=== PATIENT | female | born 1980 | race African-American/Black ===

== ENCOUNTER 2016-06-10 10:54 | Emergency (ER) | payer OTHER ==
[~2016-06-10] VITALS: Ht 157.5 cm; Wt 113.2 kg
[~2016-06-10 10:54] MED LIST: BACT800T5 PO; FLAG500T PO
[2016-06-10 11:00] VITALS: BP 132/76; PULSE 81; RESP 18; TEMP 98; O2SAT 99
[2016-06-10] MEDS ORDERED: BACT800T5 PO (12:10)
--- NOTE | 2016-06-10 12:10 | PD ---
HPI Chief Complaint: Psychiatric Orderly Problem/Complaint Time Seen by Provider: 11:42 Travel History International Travel<30 days: No Contact w/Intl Traveler<30days: No Traveled to known affect area: No History of Present Illness HPI The patient is a 35-year-old Michelle female who presents emergency department for left groin pain. The patient states she's had a lump in the left groin for last 3-4 days which is tender to palpation, however, she denies any drainage. The patient states it is external to the labia. She denies any vaginal discharge or burning. She also notes occasional pain with defecation, states she has some pain with the movement of large stools, occasionally has bright red blood on her tissue paper. She denies any constipation. She denies any nausea, vomiting, or abdominal pain. She denies any associated fever, chills, sweats, or history of diabetes. PFSH Past Medical History Medical History: Denies Significant Hx Hx Anticoagulant Therapy: No Cardiovascular Problems: No Chemotherapy: No Cerebrovascular Accident: No Diabetes: No Diminished Hearing: No Respiratory: No Immunizations Current: Yes Tetanus Vaccination: < 5 Years Influenza Vaccination: No ?: Not LMP: 2 WEEKS Past Surgical History Section: Yes (X2) Hysterectomy: No Social History Alcohol Use: No Tobacco Use: No Substance Use: No Allergies-Medications (Allergen,Severity, Reaction): Coded Allergies: No Known Allergies (Unverified , 06/10/16) Reported Meds & Prescriptions Reported Meds & Active Scripts Active No Active Prescriptions or Reported Medications Review of Systems General / Constitutional: No: Fever Gastrointestinal: Positive: Other (rectal pain), No: Nausea, Vomiting, Diarrhea, Abdominal Pain Genitourinary: Positive: Other (as noted in history present illness), No: Dysuria Skin: Positive Other (as noted in the history of present illness) Physical Exam Narrative GENERAL: Awake, alert, pleasant 35-year-old female who appears her stated age and is in no acute respiratory distress. SKIN: Focused skin assessment warm/dry. HEAD: Atraumatic. Normocephalic. EYES: No injection or drainage. GASTROINTESTINAL: Abdomen soft, non-tender, nondistended. Obese, no rebound tenderness. Rectal: The exam was performed in the presence of a female nurse. Anal fissure at 6 o'clock position. GENITOURINARY: The exam was performed in the presence of a female nurse. Inspection labia majora minora reveals no rashes or lesions. No Bartholin's cyst noted. On the left aspect of the inguinal area there is a 1 cm x 1.5 cm round lesion that is tender palpation, appears to be an abscess related to folliculitis. MUSCULOSKELETAL: No obvious deformities. No clubbing. No cyanosis. No edema. NEUROLOGICAL: Awake and alert. No obvious cranial nerve deficits. Motor grossly within normal limits. Normal speech. PSYCHIATRIC: Appropriate mood and affect; insight and judgment normal. Data Data Last Documented VS Vital Signs Date Time Temp Pulse Resp B/P Pulse Ox O2 Delivery O2 Flow Rate FiO2 06/10/16 11:00 98.0 81 18 132/76 99 MDM Medical Decision Making Medical Screen Exam Complete: Yes Emergency Medical Condition: Yes Medical Record Reviewed: Yes Differential Diagnosis Differential diagnosis includes abscess, seroma, folliculitis, carbuncle, Bartholin's cyst, anal fissure, external hemorrhoids, internal hemorrhoids. Narrative Course The patient has a small abscess on the left inguinal area that measures 1.5 cm x 1 cm. After discussion with the patient was agreed would be cleaned and drained with a needle. The area is cleaned with Betadine, a 18-gauge needle was placed into the small abscess, there was some purulent drainage which was cultured. The patient is advised to have warm compresses, take Bactrim as directed, and follow-up with her primary physician. She is also advised to have stool softeners for her rectal fissure and to drink plenty fluids to stay hydrated. The patient agrees and understands. Procedures Procedure Narrative The patient's left inguinal area, overlying the abscess, was cleaned with Betadine. A 18-gauge needle was applied to the abscess with purulent drainage. A culture was obtained. The patient tolerated the procedure without difficulty and there was no obvious complications. Diagnosis Primary Impression: Abscess Additional Impression: Anal fissure Patient Instructions: General Instructions Additional Instructions: Wound care. Medications as directed. Warm compresses to the affected area. Stool softeners. Drink plenty fluids to stay hydrated. Follow-up with her primary physician. Med/Other Pt SpecificInfo: Prescription(s) given Scripts Sulfamethoxazole-Trimethoprim (Bactrim DS)800-160 Mg Tab1 Tab PO BID #14 TAB Ref 0 Prov:Jonnie Morfin MD 06/10/16 Disposition: 01 DISCHARGE HOME Jonnie Morfin MD June 10, 2016 12:10
[2016-06-10 12:31] VITALS: BP 130/82
== END 2016-06-10 12:32 | disposition home or self-care (01) ==
LOC: PHED 10:54
DX: L02.214 Cutaneous abscess of groin (principal); B96.89 Other specified bacterial agents as the cause of diseases classified elsewhere; K60.2 Anal fissure, unspecified
CPT/HCPCS: 10060; 87070

== ENCOUNTER 2016-11-30 11:26 | Emergency (ER) | payer OTHER ==
[~2016-11-30] VITALS: Ht 157.5 cm; Wt 113.8 kg
[~2016-11-30 11:26] MED LIST changes: -FLAG500T PO
[2016-11-30 12:12] VITALS: BP 137/74; PULSE 73; RESP 16; TEMP 99.2; O2SAT 100
--- NOTE | 2016-11-30 14:12 | PD ---
HPI . Right ear congestion Chief Complaint: ENT Complaint Time Seen by Provider: 12:43 Travel History International Travel<30 days: No Contact w/Intl Traveler<30days: No Traveled to known affect area: No History of Present Illness HPI 36-year-old female presents emergency department for evaluation of right ear congestion that started last night. Patient states she is having a hard time hearing out of that ear due to the congestion. Patient denies any major medical history and does not take any daily medication. Patient denies any fevers, chills, sore throat, cough, malaise, abdominal pain and lightheadedness. PFSH Past Medical History Hx Anticoagulant Therapy: No Cardiovascular Problems: No Chemotherapy: No Cerebrovascular Accident: No Diabetes: No Diminished Hearing: No Respiratory: No Immunizations Current: Yes ?: Unknown LMP: 11/11/16 Past Surgical History Section: Yes (X2) Hysterectomy: No Social History Alcohol Use: No Tobacco Use: No Substance Use: No Allergies-Medications (Allergen,Severity, Reaction): Coded Allergies: No Known Allergies (Unverified , 06/10/16) Reported Meds & Prescriptions Reported Meds & Active Scripts Active No Active Prescriptions or Reported Medications Review of Systems Except as stated in HPI: all other systems reviewed are Neg Physical Exam Narrative GENERAL: Well-nourished, well-developed 36-year-old female patient in no acute distress. Nontoxic appearing. SKIN: Focused skin assessment warm/dry. HEAD: Normocephalic. Atraumatic. EYES: No scleral icterus. No injection or drainage. EARS: Bilateral pinnae and external canals appear within normal limits. Left tympanic membrane without erythema, dullness or perforation. Right tympanic membrane unable to visualize due to excessive amount of wax buildup in the ear canal. NECK: Supple, trachea midline. No JVD or lymphadenopathy. CARDIOVASCULAR: Regular rate and rhythm without murmurs, gallops, or rubs. RESPIRATORY: Breath sounds equal bilaterally. No accessory muscle use. GASTROINTESTINAL: Abdomen soft, non-tender, nondistended. MUSCULOSKELETAL: No cyanosis, or edema. BACK: Nontender without obvious deformity. No CVA tenderness. Data Data Last Documented VS Vital Signs Date Time Temp Pulse Resp B/P (MAP) Pulse Ox O2 Delivery O2 Flow Rate FiO2 11/30/16 12:12 99.2 73 16 137/74 (95) 100 Orders Orders Ear Irrigation (11/30/16 12:47) [facility] Medical Decision Making Medical Screen Exam Complete: Yes Emergency Medical Condition: Yes Differential Diagnosis Differential diagnoses include but are not limited to foreign body in right ear , ear congestion, sinus congestion, allergies, otitis media Narrative Course 36-year-old female presents emergency department for evaluation of ear congestion and right ear that started yesterday. Patient has any fever, chills , malaise. The tympanic membrane on the right ear is unable to be visualized with a large amount of excessive wax buildup. Patient's right ear irrigated and patient states she can hear that her and the pressure/congestion as a result. Patient is thankful for care and ready to be discharged home. Diagnosis Primary Impression: Ear congestion Qualified Codes: H93.8X1 - Other specified disorders of right ear Patient Instructions: Earache (ED), General Instructions Additional Instructions: Please return to emergency department if your symptoms return or worsen. Follow up with your primary care provider. Scripts No Active Prescriptions or Reported Meds Disposition: 01 DISCHARGE HOME Condition: Stable Marlene Bloom Nov 30, 2016 14:12
[2016-11-30] MEDS ORDERED: ACETAMINOPHEN 325 MG TAB PO ONE (14:15)
== END 2016-11-30 14:24 | disposition home or self-care (01) ==
LOC: PHEFT 11:26
DX: H93.8X1 Other specified disorders of right ear (principal)
CPT/HCPCS: 99283